=== PATIENT | female | born 1960 | race African-American/Black ===

== ENCOUNTER 2019-11-18 00:07 | Emergency (ER) | payer BC, MEDICARE ==
[~2019-11-18] VITALS: Ht 160 cm; Wt 136.3 kg
[2019-11-18] MEDS ORDERED: fentaNYL PF VIAL 100 MCG/2 ML VIAL IVP ONE (03:00)
--- NOTE | 2019-11-18 03:01 | PHYS DOC ---
Past Medical History Past Medical History: Hypertension, Stroke, Other Additional Past Medical Histor: ANEURYSM, PREDIABETES Past Surgical History: No Surgical History Smoking Status: Never Smoker Alcohol Use: None Adult General Chief Complaint Chief Complaint: HEADACHE HPI HPI Patient is a 59 year old with history of hypertension, prediabetes, CVA and aneurysm who presents with pain, headache and vaginal bleeding. Patient states she has had constant headaches for the last 7 days as a sharp pain in her head with radiation to her neck without fever and chills and focal neurodeficit. Patient rated her pain 8/10 and injury, history of migraine headache, nausea and vomiting. Patient states she had intermittent episodes of dizziness movement of her head today without tinnitus, double or blurred vision. Patient also complaining of vaginal spotting since yesterday and stated her last menstruation was 3 years ago. 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 Review of Systems Review of Systems Constitutional: Denies fever or chills [] Eyes: Denies change in visual acuity, redness, or eye pain [] HENT: Denies nasal congestion or sore throat [] Respiratory: Denies cough or shortness of breath [] Cardiovascular: No additional information not addressed in HPI [] GI: Denies abdominal pain, nausea, vomiting, bloody stools or diarrhea [] : Denies dysuria or hematuria [] Musculoskeletal: Denies back pain or joint pain [] Integument: Denies rash or skin lesions [] Neurologic: Denies focal weakness or sensory changes , reports headache[] Endocrine: Denies polyuria or polydipsia [] All other systems were reviewed and found to be within normal limits, except as documented in this note. Current Medications Current Medications Current Medications Medications (Trade) Dose Ordered Sig/[facility] Start Time Stop Time Status Last Admin Dose Admin Acetaminophen (Tylenol) 1,000 mg 1X ONCE 11/18/19 04:30 11/18/19 04:32 DC Fentanyl Citrate (Fentanyl 2ml Vial) 50 mcg 1X ONCE 11/18/19 03:00 11/18/19 03:03 DC Allergies Allergies Allergies Coded Allergies Type Severity Reaction Last Updated Verified No Known Drug Allergies 11/18/19 No Physical Exam Physical Exam Constitutional: Well developed, well nourished, mild distress, non-toxic appear ance, morbidly obese. [] HENT: Normocephalic, atraumatic, bilateral external ears normal, oropharynx moist, no oral exudates, nose normal. [] Eyes: PERRLA, EOMI, conjunctiva normal, no discharge. [] Neck: Normal range of motion, no tenderness, supple, no stridor. [] Cardiovascular:Heart rate regular rhythm, no murmur [] Lungs & Thorax: Bilateral breath sounds clear to auscultation [] Abdomen: Bowel sounds normal, soft, no tenderness, no masses, no pulsatile masses. [] Skin: Warm, dry, no erythema, no rash. [] Back: No tenderness, no CVA tenderness. [] Extremities: No tenderness, no cyanosis, no clubbing, ROM intact. Neurologic: Alert and oriented X 3, normal motor function, normal sensory function, no focal deficits noted. [] Psychologic: Affect normal, judgement normal, mood normal. [] Current Patient Data Vital Signs Vital Signs Date Time Temp Pulse Resp B/P (MAP) Pulse Ox O2 Delivery O2 Flow Rate FiO2 11/18/19 02:25 98.4 65 20 143/85 (104) 97 Room Air 98.4 Lab Values Laboratory Tests Test 11/18/19 03:41 White Blood Count 6.6 x10^3/uL (4.0-11.0) Red Blood Count 4.61 x10^6/uL (3.50-5.40) Hemoglobin 13.4 g/dL (12.0-15.5) Hematocrit 39.8 % (36.0-47.0) Mean Corpuscular Volume 86 fL (79-100) Mean Corpuscular Hemoglobin 29 pg (25-35) Mean Corpuscular Hemoglobin Concent 34 g/dL (31-37) Red Cell Distribution Width 15.8 % (11.5-14.5) H Platelet Count 259 x10^3/uL (140-400) Neutrophils (%) (Auto) 58 % (31-73) Lymphocytes (%) (Auto) 30 % (24-48) Monocytes (%) (Auto) 8 % (0-9) Eosinophils (%) (Auto) 3 % (0-3) Basophils (%) (Auto) 1 % (0-3) Neutrophils # (Auto) 3.8 x10^3/uL (1.8-7.7) Lymphocytes # (Auto) 2.0 x10^3/uL (1.0-4.8) Monocytes # (Auto) 0.5 x10^3/uL (0.0-1.1) Eosinophils # (Auto) 0.2 x10^3/uL (0.0-0.7) Basophils # (Auto) 0.1 x10^3/uL (0.0-0.2) Prothrombin Time 13.3 SEC (11.7-14.0) Prothrombin Time INR 1.1 (0.8-1.1) Sodium Level 138 mmol/L (136-145) Potassium Level 3.8 mmol/L (3.5-5.1) Chloride Level 103 mmol/L (98-107) Carbon Dioxide Level 26 mmol/L (21-32) Anion Gap 9 (6-14) Blood Urea Nitrogen 14 mg/dL (7-20) Creatinine 0.7 mg/dL (0.6-1.0) Estimated GFR (Cockcroft-Gault) 103.6 BUN/Creatinine Ratio 20 (6-20) Glucose Level 115 mg/dL (70-99) H Calcium Level 8.8 mg/dL (8.5-10.1) Total Bilirubin 0.4 mg/dL (0.2-1.0) Aspartate Amino Transferase (AST) 28 U/L (15-37) Alanine Aminotransferase (ALT) 34 U/L (14-59) Alkaline Phosphatase 135 U/L (46-116) H Troponin I Quantitative < 0.017 ng/mL (0.000-0.055) Total Protein 7.0 g/dL (6.4-8.2) Albumin 3.6 g/dL (3.4-5.0) Albumin/Globulin Ratio 1.1 (1.0-1.7) Laboratory Tests 11/18/19 03:41 Laboratory Tests 11/18/19 03:41 EKG EKG EKG interpreted by me. EKG at 0232 showed normal sinus rhythm at rate of 65, leftward axis, LVH, poor R-wave progress in anteroseptal leads, no acute ST and T-wave elevation. Radiology/Procedures Radiology/Procedures [facility] [address] [place] [address] IMAGING REPORT Signed PATIENT: SHANA GREEN: [id number] : 1960 LOCATION: ER AGE: 59 SEX: F EXAM STATUS: REG ER ORD. PHYSICIAN: SHELDON YA MD REASON: postmenopausal vaginal bleeding PROCEDURE: PELVIS COMPLETE OB ultrasound dated 11/18/2019. No comparison available. CLINICAL INDICATION: Postmenopausal spotting. FINDINGS: Transabdominal and transvaginal imaging performed. Uterus measures 16.9 x 10.1 x 9.8 cm. There are multiple mass lesions throughout, largest of which measures up to 5.2 cm maximum dimension. The endometrium is not clearly visualized and may be obscured by the myometrial masses. Neither ovary is clearly identified. No apparent adnexal mass or free fluid. There are nabothian cysts at the endocervical region. IMPRESSION: 1. Enlarged myomatous uterus. 2. The endometrium is not clearly identified and likely obscured by uterine fibroids. 3. Neither ovary is clearly seen. There is no apparent adnexal mass or free fluid. Electronically signed by: Sameer Corea MD (11/18/2019 3:50 AM) [id number] DICTATED and SIGNED BY: SAMEER COREA MD DATE: 11/18/19 0350 [facility] [address] [place] [address] IMAGING REPORT Signed PATIENT: SHANA GREEN ACCOUNT: [id number] : 1960 LOCATION: ER AGE: 59 SEX: F EXAM STATUS: REG ER ORD. PHYSICIAN: SHELDON YA MD REASON: headache for 7 days PROCEDURE: CT HEAD AND CERVICAL SPINE WO CT HEAD AND CERVICAL SPINE WO dated 11/18/2019 2:34 AM. Comparison: None. Clinical Indication: Headache for 7 days, NECK PAIN Technical factors: Contiguous 5 mm axial images of the head were obtained from the skullbase to the vertex. No contrast was administered. In addition, 3 mm axial images of the cervical spine were acquired with thin cut coronal and sagittal reconstructions. One or more of the following individualized dose reduction techniques were utilized for this examination: 1. Automated exposure control 2. Adjustment of the mA and/or kV according to patient size 3. Use of iterative reconstruction technique Findings head: Ventricles and sulci are within normal limits for age. No evidence of ventricular shift or mass effect. Brain parenchyma is of normal attenuation. There is no evidence of hemorrhage or extra-axial collection. Visualized paranasal sinuses and mastoid air cells are clear. No acute osseous abnormality. IMPRESSION HEAD: 1. No evidence of acute intracranial abnormality. Findings cervical spine: Images were acquired from the skull base to T4. There is straightening of the normal cervical lordosis, otherwise sagittal alignment is anatomic. Vertebral body heights are maintained. No prevertebral soft tissue swelling. Posterior elements are intact. No fractures are identified. Mild endplate hypertrophic changes throughout with mild multilevel uncovertebral spurring and facet arthropathy. The central canal and foramen are adequate. There is some prominent anterior osteophytes at C4-C5 and C5-C6. Visualized soft tissue structures unremarkable. Limited images of lung apices are clear. There is a calcific granuloma in the right paratracheal region. IMPRESSION CERVICAL SPINE: 1. No evidence of fracture or malalignment. 2. Mild multilevel spondylosis. Electronically signed by: Sameer Corea MD (11/18/2019 3:10 AM) [id number] DICTATED and SIGNED BY: SAMEER COREA MD DATE: 11/18/19309 Course & Med Decision Making Course & Med Decision Making Pertinent Labs and Imaging studies reviewed. (See chart for details) discharge: I've spoken with the patient and/or caregivers. I've explained the patient's condition, diagnosis and treatment plan based on information available to me at this time. I've answered the patient's and/or caregivers questions and addressed any concerns. The patient and/or caregivers have a good understanding the patient's diagnosis, condition and treatment plan as can be expected at this point. Vital signs have been stabilized. The patient's condition is stable for discharge from the emergency department. The patient will pursue further outpatient evaluation with her primary care provider or other designated consulting physician as outlined in the discharge instructions. Patient and/or caregivers are agreeable to this plan of care and follow-up instructions have been explained in detail. The patient and/or caregivers have received these instructions in written format and expressed understanding of these discharge instructions. The patient and her caregivers are aware that if any significant change in condition or worsening of symptoms should prompt him to immediately return to this of the closest emergency department. If an emergent department is not readily available I would encourage him to call 911. Case Disclaimer Case Disclaimer This electronic medical record was generated, in whole or in part, using a voice recognition dictation system. Departure Departure Impression: Primary Impression: Headache Additional Impressions: Abnormal vaginal bleeding in postmenopausal patient Morbid obesity Condition: IMPROVED Referrals: UNKNOWN PCP NAME (PCP) JOHN GARCIA MD Patient Instructions: General Headache Without Cause, [id number], Postmenopausal Bleeding Additional Instructions: Drink plenty of liquids Follow-up with your primary care physician in 3-5 days Return to ER if not getting better Follow-up with [employer] in 3 days for evaluation of abnormal vaginal bleeding Thank you for visiting [facility]. We appreciate you trusting us with your care. If any additional problems come up don't hesitate to return to visit us. Please follow up with your primary care provider so they can plan additional care if needed and know about the problem that you had. If symptoms worsen come back to the Emergency Department. Any concerning symptoms that start such as chest pain, shortness of air, weakness or numbness on one side of the body, running high fevers or any other concerning symptoms return to the ER. Scripts Butalbital/Aspirin/Caffeine (FIORINAL 50-325-40 MG CAPSULE) 1 Each Capsule 1 EACH PO QID, #10 CAP Prov: SHELDON YA MD 11/18/19 Problem Qualifiers Primary Impression: Headache Headache type: unspecified Headache chronicity pattern: unspecified pattern Intractability: not intractable Qualified Codes: R51 - Headache SHELDON YA MD Nov 18, 2019 03:01
--- NOTE | 2019-11-18 03:13 | RAD ---
CT HEAD AND CERVICAL SPINE WO dated 11/18/2019 2:34 AM. Comparison: None. Clinical Indication: Headache for 7 days, NECK PAIN Technical factors: Contiguous 5 mm axial images of the head were obtained from the skullbase to the vertex. No contrast was administered. In addition, 3 mm axial images of the cervical spine were acquired with thin cut coronal and sagittal reconstructions. One or more of the following individualized dose reduction techniques were utilized for this examination: 1. Automated exposure control 2. Adjustment of the mA and/or kV according to patient size 3. Use of iterative reconstruction technique Findings head: Ventricles and sulci are within normal limits for age. No evidence of ventricular shift or mass effect. Brain parenchyma is of normal attenuation. There is no evidence of hemorrhage or extra-axial collection. Visualized paranasal sinuses and mastoid air cells are clear. No acute osseous abnormality. IMPRESSION HEAD: 1. No evidence of acute intracranial abnormality. Findings cervical spine: Images were acquired from the skull base to T4. There is straightening of the normal cervical lordosis, otherwise sagittal alignment is anatomic. Vertebral body heights are maintained. No prevertebral soft tissue swelling. Posterior elements are intact. No fractures are identified. Mild endplate hypertrophic changes throughout with mild multilevel uncovertebral spurring and facet arthropathy. The central canal and foramen are adequate. There is some prominent anterior osteophytes at C4-C5 and C5-C6. Visualized soft tissue structures unremarkable. Limited images of lung apices are clear. There is a calcific granuloma in the right paratracheal region. IMPRESSION CERVICAL SPINE: 1. No evidence of fracture or malalignment. 2. Mild multilevel spondylosis. Electronically signed by: Sameer Corea MD (11/18/2019 3:10 AM) [id number]
--- NOTE | 2019-11-18 03:52 | RAD ---
OB ultrasound dated 11/18/2019. No comparison available. CLINICAL INDICATION: Postmenopausal spotting. FINDINGS: Transabdominal and transvaginal imaging performed. Uterus measures 16.9 x 10.1 x 9.8 cm. There are multiple mass lesions throughout, largest of which measures up to 5.2 cm maximum dimension. The endometrium is not clearly visualized and may be obscured by the myometrial masses. Neither ovary is clearly identified. No apparent adnexal mass or free fluid. There are nabothian cysts at the endocervical region. IMPRESSION: 1. Enlarged myomatous uterus. 2. The endometrium is not clearly identified and likely obscured by uterine fibroids. 3. Neither ovary is clearly seen. There is no apparent adnexal mass or free fluid. Electronically signed by: Sameer Corea MD (11/18/2019 3:50 AM) [id number]
--- NOTE | 2019-11-18 03:52 | EKG ---
[facility] [address] [place] [address] Test Date: 2019-11-18 Test Time: 03:32:32 Pat Name: SHANA GREEN Department: Room: Gender: F Movie Actor: : 1960 Requested By: SHELDON YA Order Number: [id number] Reading MD: Measurements Intervals [place] Rate: 65 P: 18 NV: 196 QRS: -6 QRSD: 104 T: 5 QT: 408 QTc: 425 Interpretive Statements SINUS RHYTHM LEFTWARD AXIS CONSIDER LEFT VENTRICULAR HYPERTROPHY NON SPECIFIC T ABNORMALITY POSSIBLY ABNORMAL ECG No previous ECG available for comparison
[2019-11-18 03:57] LABS: BASO # 0.1 x10^3/uL (0.0-0.2); BASO % 1 % (0-3); EOS # 0.2 x10^3/uL (0.0-0.7); EOS % 3 % (0-3); HEMATOCRIT 39.8 % (36.0-47.0); HEMOGLOBIN 13.4 g/dL (12.0-15.5); LYMPH % 30 % (24-48); MEAN CORPUSCULAR HEMOGLOBIN 29 pg (25-35); MEAN CORPUSCULAR HGB CONC 34 g/dL (31-37); MEAN CORPUSCULAR VOLUME 86 fL (79-100); MONO # 0.5 x10^3/uL (0.0-1.1); MONO % 8 % (0-9); NEUT # 3.8 x10^3/uL (1.8-7.7); NEUT % 58 % (31-73); PLATELET COUNT 259 x10^3/uL (140-400); RED BLOOD COUNT 4.61 x10^6/uL (3.50-5.40); RED CELL DISTRIBUTION WIDTH 15.8 % (11.5-14.5); WHITE BLOOD COUNT 6.6 x10^3/uL (4.0-11.0)
[2019-11-18 04:09] LABS: PROTHROMBIN TIME PATIENT 13.3 SEC (11.7-14.0)
[2019-11-18 04:12] LABS: CALCIUM 8.8 mg/dL (8.5-10.1); CREATININE 0.7 mg/dL (0.6-1.0); GFR 103.6; POTASSIUM 3.8 mmol/L (3.5-5.1)
[2019-11-18 04:23] LABS: ALBUMIN 3.6 g/dL (3.4-5.0); ALBUMIN/GLOBULIN RATIO 1.1 (1.0-1.7); TOTAL BILIRUBIN 0.4 mg/dL (0.2-1.0)
[2019-11-18] MEDS ORDERED: BUTA1CAP31 PO (04:29)
[2019-11-18] MEDS ORDERED: ACETAMINOPHEN 500 MG TABLET PO ONE (04:30)
[2019-11-18 04:40] VITALS: BP 124/65
== END 2019-11-18 04:39 | disposition home or self-care (01) ==
LOC: ER 00:07
DX: G43.909 Migraine, unspecified, not intractable, without status migrainosus (principal); R42 Dizziness and giddiness; N93.9 Abnormal uterine and vaginal bleeding, unspecified; R10.30 Lower abdominal pain, unspecified; I10 Essential (primary) hypertension; Z86.73 Personal history of transient ischemic attack (TIA), and cerebral infarction without residual deficits
CPT/HCPCS: 36415; 70450; 72125; 76856; 80053; 84484; 85025; 85610; 93005; 99285-25

== ENCOUNTER 2021-02-05 20:08 | Emergency (ER) | payer BC, MEDICAID ==
[~2021-02-05] VITALS: Ht 162.6 cm; Wt 155.0 kg
[~2021-02-05 20:08] MED LIST: BUTA1CAP31 PO
[2021-02-05 20:15] VITALS: BP 136/74
--- NOTE | 2021-02-05 20:49 | ED.ADGEN ---
Past Medical History Past Medical History: High Cholesterol, Hypertension, Stroke, Other Additional Past Medical Histor: ANEURYSM, PREDIABETES Past Surgical History: No Surgical History Smoking Status: Never Smoker Alcohol Use: None General Adult EDM: Chief Complaint: BACK PAIN OR INJURY HPI: HPI: Patient is a 60 year old female coming in for right low back pain. Patient states the pain happened 3 hours prior to arrival. States she was getting out of her truck when it happened. Denies any recent trauma or falls, but states that yesterday she was walking up and down stairs all day. Patient was seen by her primary care provider for rheumatoid arthritis and had x-rays done of her spine that showed arthritis. Patient has any history of kidney stones, hematuria or dysuria. Patient states she otherwise is well before the pain started abruptly. States she was given some medications that she thought was for pain but per paperwork provided by daughter she was given propranolol for hypertension. Has not take anything for pain, has only used topical creams and heating pads. Patient states she otherwise been well denies any history of cancer, unexplained weight loss, night sweats, fevers or chills. Denies any change in bowel or bladder function. Patient not wanting work-up as well as pain control. But declines any narcotics. Review of Systems: Review of Systems: All other systems within normal limits except for as noted in the HPI Current Medications: Current Medications Medications (Trade) Dose Ordered Sig/John Start Time Stop Time Status Last Admin Dose Admin Ketorolac Tromethamine (Toradol Im) 60 mg 1X ONCE 02/05/21 21:00 02/05/21 21:01 DC 02/05/21 21:05 60 MG Methylprednisolone Sodium Succinate (SOLU-Medrol 125MG VIAL) 125 mg 1X ONCE 02/05/21 21:00 02/05/21 21:01 DC 02/05/21 21:04 125 MG Orphenadrine Citrate (Norflex) 60 mg 1X ONCE 02/05/21 21:00 02/05/21 21:01 DC 02/05/21 21:05 60 MG Allergies: Allergies: Allergies Coded Allergies Type Severity Reaction Last Updated Verified No Known Drug Allergies 11/18/19 No Physical Exam: PE: Constitutional: Well developed, well nourished, no acute distress, non-toxic appearance. [] HENT: Normocephalic, atraumatic, bilateral external ears normal, nose normal. [] Eyes: PERRLA, conjunctiva normal, no discharge. [] Neck: No rigidity, supple, no stridor. [] Cardiovascular: Regular rate and rhythm, brisk cap refill [] Lungs & Thorax: Non labored symmetric respirations, no tachypnea or respiratory distress [] Abdomen: Soft, nondistended. Skin: Warm, dry, no erythema, no rash. [] Back: Unremarkable, no step-offs or deformities, no point spine tenderness, low right lumbar tenderness down to piriformis. Patient unable to tolerate straight leg test. Extremities: No deformities, range of motion grossly intact, no lower extremity edema [] Neurologic: Alert and oriented X 3, no focal deficits noted. [] Psychologic: Affect normal, judgement normal, mood normal. [] Current Patient Data: Vital Signs: Vital Signs Date Time Temp Pulse Resp B/P (MAP) Pulse Ox O2 Delivery O2 Flow Rate FiO2 02/05/21 20:15 98.1 82 16 136/74 (94) 96 Room Air 98.1 EKG: EKG: [] Heart Score: C/O Chest Pain: No Risk Factors: Risk Factors: DM, Current or recent (<one month) smoker, HTN, HLP, family history of CAD, obesity. Risk Scores: Score 0 - 3: 2.5% MACE over next 6 weeks - Discharge Home Score 4 - 6: 20.3% MACE over next 6 weeks - Admit for Clinical Observation Score 7 - 10: 72.7% MACE over next 6 weeks - Early Invasive Strategies Radiology/Procedures: Radiology/Procedures: [] Course & Med Decision Making: Course & Med Decision Making She already had a x-ray done by primary care she was told it showed arthritis but no other deformities. Pain is nontraumatic. Patient not wanting opioid pain medications. Was hoping for pain control but is declining any extensive work-up Case Disclaimer: Case Disclaimer: This electronic medical record was generated, in whole or in part, using a voice recognition dictation system. Departure Departure Impression: Primary Impression: Right lumbar pain Disposition: HOME / SELF CARE / HOMELESS Condition: STABLE Referrals: UNKNOWN PCP NAME (PCP) Patient Instructions: Back Exercises Scripts Cyclobenzaprine Hcl (CYCLOBENZAPRINE HCL) 10 Mg Tablet 1 TAB PO TID PRN for MUSCLE SPASMS for 5 Days, #15 TAB Prov: PAULINE VALENCIA MD 02/05/21 PAULINE VALENCIA MD February 05, 2021 20:48
[2021-02-05] MEDS ORDERED: KETOROLAC 60 MG/2 ML VIAL. IM ONE (21:00)
[2021-02-05] MEDS ORDERED: methylPREDNISolone SOD SUCC PF 125 MG/2 ML VIAL. IM ONE (21:00)
[2021-02-05] MEDS ORDERED: ORPHENADRINE CITRATE 60 MG/2 ML VIAL. IM ONE (21:00)
[2021-02-05] MEDS ORDERED: CYCL10TA2 PO (22:05)
== END 2021-02-05 22:50 | disposition home or self-care (01) ==
LOC: ER 20:08
DX: M54.5 Low back pain (principal); I10 Essential (primary) hypertension; E78.00 Pure hypercholesterolemia, unspecified; Z86.73 Personal history of transient ischemic attack (TIA), and cerebral infarction without residual deficits
CPT/HCPCS: 96372; 99284; J1885; J2360; J2930